=== PATIENT | male | born 1960 | race Caucasian/White ===

== ENCOUNTER → 2017-07-05 | Outpatient (CLI) | payer BC ==
--- NOTE | 2017-07-05 18:12 | CT ---
EXAMINATION TYPE: CT chest w con DATE OF EXAM: 07/05/2017 COMPARISON: NONE HISTORY: ABNORMAL FINDINGS ON CXR. CT DLP: 774 mGycm Automated exposure control for dose reduction was used. CONTRAST: CT scan of the chest is performed with IV Contrast, patient injected with 100 mL of Omnipaque 300. FINDINGS: The lungs are clear of consolidation. There is no evidence of a pulmonary mass. Heart size is normal. There is no mediastinal adenopathy. There are no hilar masses. Thoracic aorta appears normal. There is no evidence of aneurysm or dissection. There is no pericardial effusion. There is no pleural effus ion. The bony thorax appears intact. IMPRESSION: Negative CT scan of the chest.
== END | disposition home or self-care (01) ==
LOC: RADCTMAIN 17:29
PROVIDERS: ATTEND Family Medicine
DX: R91.8 Other nonspecific abnormal finding of lung field (principal)
CPT/HCPCS: 71260; Q9967

== ENCOUNTER → 2018-11-23 | Outpatient (CLI) | payer BC ==
--- NOTE | 2018-11-23 08:51 | US ---
EXAMINATION TYPE: US abdomen complete DATE OF EXAM: 11/23/2018 COMPARISON: NONE CLINICAL HISTORY: R10.10 Upper Abdominal Pain R12 Heartburn. Pt states upper ABD pain and heart burn EXAM MEASUREMENTS: Liver Length: 18.5 cm Gallbladder Wall: 0.4 cm CBD: 0.9 cm Spleen: 8.9 cm Right Kidney: 12.0 x 4.0 x 5.7 cm Left Kidney: 11.7 x 5.2 x 4.9 cm Pancreas: wnl, tail obscured by overlying bowel gas Liver: There is increased echogenicity of the hepatic parenchyma with diminished visualization of th e portal triads most commonly relating to hepatic steatosis and limiting evaluation for underlying he patic masses. Gallbladder: Gallstones at fundus, thickened wall and pericholecystic fluid Evidence for sonographic Encarnacion's sign: Yes CBD: wnl Spleen: wnl Right Kidney: wnl Left Kidney: wnl Upper IVC: wnl Abd Aorta: wnl The intrahepatic portion of the IVC and proximal abdominal aorta are within normal limits. Common kaylynn e duct is dilated. The visualized portions of the pancreas are homogenous. The spleen is unremarkabl e. Kidneys are symmetric and free of hydronephrosis. No renal lesions are seen. IMPRESSION: 1. Sonographic findings are most compatible with acute cholecystitis as there is gallbladder wall thi ckening, pericholecystic fluid, cholelithiasis, enlargement of the common bile duct, and positive son ographic Encarnacion sign. Surgical evaluation is recommended. 2. Sonographic findings most compatible with hepatic steatosis overall appearing mild in degree. Corey elate with liver function tests to exclude other hepatocellular disease. A Red level critical message alert has been initiated for Raysa Kingston III, MD via the [employer] Critical Results System on 11/23/2018 8:48 AM. This message alert has been sent to Raysa Kingston III, MD via the preferences provided by the clinician for the receipt of Radiology Critical Findings. [facility] [id number].
== END ==
LOC: RADUSWWP 08:16
PROVIDERS: ATTEND Family Medicine
DX: K82.8 Other specified diseases of gallbladder (principal); K83.8 Other specified diseases of biliary tract; K80.20 Calculus of gallbladder without cholecystitis without obstruction; R93.3 Abnormal findings on diagnostic imaging of other parts of digestive tract
CPT/HCPCS: 76700

== ENCOUNTER → 2018-11-30 | Day surgery (SDC) | payer BC ==
[2018-11-29 10:26] VITALS: BMI 33.5
[~2018-11-30] MED LIST: BUPIVACAINE-EPI 0.5%-1:200,000 10 ML VIAL SQ ONE; DEXAMETHASONE SOD PHOSPHATE 10 MG/ML 1 ML VIAL IV ONE; GLYCOPYRROLATE 0.2 MG/ML 2 ML VIAL ONE; HEPARIN SODIUM,PORCINE 5,000 UNIT/ML 1 ML VIAL SQ ONE; HYDROcodone/APAP 5-325MG 1 EACH TAB PO ONE; HYDROcodone/APAP 5-325MG 1 EACH TAB PO PRN; HYDROmorphone (PF) 1 MG/ML ONE; HYDROmorphone 0.5 MG/0.5 ML SYRINGE IVP PRN; LACTATED RINGERS 1,000 ML IV ONE; LACTATED RINGERS 1,000 ML IV SCH; LIDOCAINE 1% 20 ML VIAL (10MG/ML) FOR IV START INTRADERMA PRN; LIDOCAINE 1% INJ 10MG/ML (20 ML MDV) ONE; MIDAZOLAM 2 MG/2 ML VIAL IV PRN; MIDAZOLAM 2 MG/2 ML VIAL ONE; NALOXONE 0.4 MG/ML 1 ML VIAL IV PRN; NEOSTIGMINE 1 MG/ML 10 ML VIAL ONE; ONDANSETRON 4 MG/2 ML VIAL IVP ONE; PROPOFOL 10 MG/ML 20 ML VIAL IV ONE; ROCURONIUM BROMIDE 10 MG/ML 10 ML VIAL IV ONE; SUCCINYLCHOLINE CHLORIDE VIAL 200 MG/10 ML VIAL IV ONE; ceFAZolin IN SWFI 2 GM/20 ML SYRINGE IVP ONE; ePHEDrine SULFATE/0.9% NACL/PF 50 MG/5 ML SYRINGE IV ONE; fentaNYL (PF) 50 MCG/ML 2 ML AMP ONE
--- NOTE | 2018-11-30 13:47 | P.GSHP ---
History of Present Illness H&P Date: 11/30/18 Chief Complaint: Chronic cholecystitis Patient presents with a two-month history of abdominal bloating and vague upper abdominal pain with radiation to the back. No particular triggers for the pain. No vomiting. Mild nausea. Slight anorexia at times. Recent labs normal. Ultrasound shows a thickened gallbladder wall with stones. Patient here today for cholecystectomy. No bowel complaints. 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 Past Anesthesia/Blood Transfusion Reactions: No Reported Reaction Smoking Status: Never smoker - Past Family History Father Family Medical History: Cancer Medications and Allergies Home Medications Medication Instructions Recorded Confirmed Type Levofloxacin [Levaquin] 500 mg PO DAILY 11/29/18 11/29/18 History Olmesartan Medoxomil [Benicar] 40 mg PO DAILY 11/29/18 11/29/18 History Allergies Allergy/AdvReac Type Severity Reaction Status Date / Time amoxicillin [From Augmentin] Allergy Unknown Verified 11/29/18 10:18 clarithromycin [From Biaxin] Allergy Unknown Verified 11/29/18 10:18 clavulanic acid Allergy Unknown Verified 11/29/18 10:18 [From Augmentin] Surgical - Exam Physical exam: General: Well-developed, well-nourished HEENT: Normocephalic, sclerae nonicteric Abdomen: Nontender, nondistended Extremities: No edema Neuro: Alert and oriented Assessment and Plan (1) Chronic cholecystitis Narrative/Plan: Will proceed with laparoscopic cholecystectomy. Risks of bleeding, infection, bile leak, bile duct injury, retained common bile duct stone, trocar injury, conversion to an open procedure, hernia, anesthesia related complications were reviewed. The patient understands and wishes to proceed. Current Visit: Yes Status: Acute Code(s): K81.1 - CHRONIC CHOLECYSTITIS SNOMED Code(s): 80385455
--- NOTE | 2018-11-30 16:05 | P.OP ---
Date of Procedure: 11/30/18 Procedure(s) Performed: PREOPERATIVE DIAGNOSIS: Chronic cholecystitis, incarcerated umbilical hernia POSTOPERATIVE DIAGNOSIS: Same PROCEDURE: Laparoscopic cholecystectomy, repair incarcerated umbilical hernia SURGEON: Corina EBL: Sue see anesthesia record ANESTHESIA: Gen. COMPLICATIONS: None OPERATIVE PROCEDURE: The patient was brought and placed on the operating room table in the supine position. The patient was placed under general anesthesia at that time. The abdomen was prepped and draped in the usual sterile fashion. A horizontal supraumbilical incision was made. The patient's hernia sac was dissected circumferentially using ultra cautery. The hernia sac and a portion of the preperitoneal fat was excised. The defect in the fascia was approximately 1.5 cm it. This was partially closed using an 0 Vicryl suture. Through that defect the 12 mm trocar was advanced under direct visualization and insufflation took place up to 15 mmHg. 2 additional 5 mm trochars were placed in the right upper quadrant under direct visualization. A 12 mm trocar was advanced into the epigastric incision site. The gallbladder was chronically inflamed. The wall of the gallbladder was fairly thickened. The omentum was adherent to this. The gallbladder was retracted superiorly and laterally. The fatty adhesions to the gallbladder were lysed using blunt dissection and electrocautery. The peritoneum overlying the infundibulum was bluntly dissected. The patient's cystic duct was visualized. The junction between the cystic duct common and hepatic duct was identified. The cystic duct was then divided after placement of 2 12 mm clips on the patient's side and one on the specimen side. The cystic artery was identified and clipped as well. A small vessel was seen along the gallbladder fossa and clipped as well. The gallbladder was then removed from the liver bed using electrocautery. The gallbladder was then removed from the umbilical trocar site with an Endo Catch bag. The gallbladder fossa was irrigated with saline. There was no evidence of any bleeding or biliary drainage seen. The fascia at the 12 millimeter site was closed using a Ermias 0 Vicryl stitch. The trochars were then removed. The fascia at the umbilical hernia site was closed using [id number] 0 Ethibond sutures. The skin at all 4 sites was closed using 4-0 Monocryl sutures. Skin glue was utilized on the incision sites. At the end of this procedure the sponge and needle counts were correct. DISPOSITION: Stable to the recovery room
[2018-11-30 16:07] VITALS: TEMP 98
[2018-11-30 16:48] VITALS: RESP 16
[2018-11-30 17:21] VITALS: BP 169/87; PULSE 73
== END ==
LOC: OR 13:27
PROVIDERS: ATTEND Surgery
DX: K80.12 Calculus of gallbladder with acute and chronic cholecystitis without obstruction (principal); K42.0 Umbilical hernia with obstruction, without gangrene; I10 Essential (primary) hypertension; K21.9 Gastro-esophageal reflux disease without esophagitis; Z98.890 Other specified postprocedural states; Z79.2 Long term (current) use of antibiotics; Z79.899 Other long term (current) drug therapy; Z88.1 Allergy status to other antibiotic agents; Z88.0 Allergy status to penicillin
CPT/HCPCS: 88304; 88302; 47562; 49587; J2250; J0330; J1644; J1100; J2710; J2405; J2001; J3010; J1170 ×2; J2704; J0690

== ENCOUNTER → 2019-01-14 | Outpatient (CLI) | payer BC | END | disposition home or self-care (01) | LOC: LABWHC1 07:43 | PROVIDERS: ATTEND Family Medicine | DX: Z00.01 Encounter for general adult medical examination with abnormal findings (principal); Z13.818 Encounter for screening for other digestive system disorders; Z12.5 Encounter for screening for malignant neoplasm of prostate | CPT/HCPCS: 86803; 36415; G0103 ==

== ENCOUNTER → 2020-04-24 | Outpatient (CLI) | payer BC ==
--- NOTE | 2020-04-24 08:40 | XR ---
EXAMINATION TYPE: XR hand complete RT DATE OF EXAM: 04/24/2020 CLINICAL HISTORY: pain TECHNIQUE: Frontal, lateral and oblique images of the right hand are obtained. COMPARISON: None. FINDINGS: There is no acute fracture/dislocation evident. The joint spaces appear mildly narrowed se cond and third DIP joints. Possible fractured spur medial head middle phalanx third digit. The overly ing soft tissue appears unremarkable. IMPRESSION: Possible fractured spur medial head middle phalanx third digit.
== END | disposition home or self-care (01) ==
LOC: RADXRWHC 07:58
PROVIDERS: ATTEND Family Medicine
DX: M79.641 Pain in right hand (principal); M79.642 Pain in left hand

== ENCOUNTER → 2020-05-13 | Outpatient (CLI) | payer BC ==
[2020-05-13 09:33] LABS: Basophils # (A) 0.1 k/uL (0-0.2); Basophils % (A) 1 %; Eosinophils # (A) 0.4 k/uL (0-0.7); Eosinophils % (A) 4 %; HCT 46.5 % (39.0-53.0); HGB 14.8 gm/dL (13.0-17.5); Lymphocytes # (A) 2.6 k/uL (1.0-4.8); Lymphocytes % (A) 26 %; MCH 32.9 pg (25.0-35.0); MCHC 31.9 g/dL (31.0-37.0); MCV 103.3 fL (80.0-100.0); Macrocytosis Slight; Mean Platelet Volume 7.7; Monocytes # (A) 0.6 k/uL (0-1.0); Monocytes % (A) 6 %; Neutrophils % (A) 61 %; Platelet Count 297 k/uL (150-450); RDW 12.2 % (11.5-15.5); WBC 9.9 k/uL (3.8-10.6)
[2020-05-13 16:31] LABS: African American GFR (CKD) 106.5 (60.0-200.0); Albumin 4.2 g/dL (3.80-4.90); Albumin/Globulin Ratio 1.83 (1.60-3.17); Anion Gap 7.6 mmol/L (4.00-12.00); BUN/Creat Ratio 16.67 Ratio (12.00-20.00); Calcium 9.4 mg/dL (8.7-10.3); Carbon Dioxide 28.4 mmol/L (21.6-31.8); Chol/HDL Ratio 3.53; Globulin 2.3 g/dL (1.6-3.3); LDL Cholesterol,Calculated 83.2 mg/dL (0.0-131.0); Non-African American GFR(CKD) 91.9 (60.0-200.0); Potassium 4.3 mmol/L (3.5-5.5); Total Bilirubin 0.5 mg/dL (0.2-1.2); Total Protein 6.5 g/dL (6.2-8.2); VLDL Calculation 25.8 mg/dL (5.00-40.00)
[2020-05-13 16:38] LABS: Prostate Specific Antigen 1.2 ng/mL (0.0-4.5)
== END | disposition home or self-care (01) ==
LOC: LABWHC1 07:32
PROVIDERS: ATTEND Physician Assistant Medical
DX: Z00.01 Encounter for general adult medical examination with abnormal findings (principal); E55.9 Vitamin D deficiency, unspecified; I10 Essential (primary) hypertension
CPT/HCPCS: 36415; 80053; 80061; 82306; 84153; 85025

== ENCOUNTER → 2021-11-03 | Outpatient (CLI) | payer BC ==
[2021-11-03 14:24] LABS: Basophils # (A) 0.08 X 10*3/uL (0.00-0.10); Basophils % (A) 0.8 %; Eosinophils # (A) 0.27 X 10*3/uL (0.04-0.35); Eosinophils % (A) 2.6 %; HCT 45.5 % (39.6-50.0); HGB 14.8 g/dL (13.0-17.0); Lymphocytes % (A) 29.8 %; MCH 33.5 pg (27.0-32.0); MCHC 32.5 g/dL (32.0-37.0); MCV 102.9 fL (80.0-97.0); Mean Platelet Volume 9.6 fL (9.5-12.2); Monocytes # (A) 0.79 X 10*3/uL (0.20-1.00); Monocytes % (A) 7.6 %; Neutrophils # (A) 6.16 X 10*3/uL (1.80-7.70); Platelet Count 263 X 10*3/uL (140-440); RBC 4.42 X 10*6/uL (4.40-5.60); WBC 10.42 X 10*3/uL (4.50-10.00)
[2021-11-03 16:58] LABS: ALT 18 U/L (10-49); AST 30 U/L (14-35); Albumin 4.2 g/dL (3.8-4.9); Alkaline Phosphatase 70 U/L (41-126); BUN/Creat Ratio 17.33 Ratio (12.00-20.00); Blood Urea Nitrogen 15.6 mg/dL (9.0-27.0); Calcium 9.2 mg/dL (8.7-10.3); Carbon Dioxide 25.3 mmol/L (20.0-27.5); Chloride 104 mmol/L (96-109); Chol/HDL Ratio 3.99 Ratio; Glucose 108 mg/dL (70-110); LDL Cholesterol,Calculated 98.9 mg/dL (0.0-131.0); Non-African American GFR(CKD) 90.6 (60.0-200.0); Potassium 4.6 mmol/L (3.5-5.5); Sodium 141 mmol/L (135-145); Total Protein 7.2 g/dL (6.2-8.2); VLDL Calculation 19.46 mg/dL (5.00-40.00)
== END | disposition home or self-care (01) ==
LOC: LABWHC1 07:37
PROVIDERS: ATTEND Physician Assistant Medical
DX: Z00.00 Encounter for general adult medical examination without abnormal findings (principal); Z12.5 Encounter for screening for malignant neoplasm of prostate; Z13.228 Encounter for screening for other metabolic disorders; I10 Essential (primary) hypertension; E55.9 Vitamin D deficiency, unspecified
CPT/HCPCS: 80053; 80061; 84443; 85025; 82306; 36415; G0103

== ENCOUNTER → 2025-03-20 | Outpatient (CLI) | payer MEDICARE, BC ==
[2025-03-20 10:18] LABS: HCT 45.4 % (39.6-50.0); HGB 15.1 g/dL (13.0-17.0); MCH 34.1 pg (27.0-32.0); MCHC 33.3 g/dL (32.0-37.0); MCV 102.5 FL (80.0-97.0); Mean Platelet Volume 10.1 FL (9.5-12.2); NRBC Per 100 WBC 0 X 10*3/uL (0.00-0.01); Platelet Count 272 X 10*3/uL (140-440); RBC 4.43 X 10*6/uL (4.40-5.60); RDW 11.9 % (11.5-14.5); WBC 11.83 X 10*3/uL (4.50-10.00)
[2025-03-20 10:48] LABS: ALT 24 U/L (10-49); AST 36 U/L (14-35); Albumin 4.1 g/dL (3.8-4.9); Albumin/Globulin Ratio 1.41 Ratio (1.60-3.17); Alkaline Phosphatase 64 U/L (41-126); BUN/Creat Ratio 23.78 Ratio (12.00-20.00); Blood Urea Nitrogen 21.4 mg/dL (9.0-27.0); Calcium 9.2 mg/dL (8.7-10.3); Carbon Dioxide 24.6 mmol/L (21.6-31.8); Chloride 101 mmol/L (96-109); Globulin 2.9 g/dL (1.6-3.3); Glucose 151 mg/dL (70-110); Potassium 4.5 mmol/L (3.5-5.5); Sodium 136 mmol/L (135-145); Total Bilirubin 0.5 mg/dL (0.3-1.2)
[2025-03-20 10:49] LABS: Prostate Specific Antigen 1.32 ng/mL (0.000-4.500); T4, Free (Free Thyroxine) 0.94 ng/dL (0.80-1.80)
[2025-03-20 15:33] LABS: Appearance,Urine Clear (Clear); Bilirubin,Urine Negative (Negative); Blood,Urine Moderate (Negative); Color,Urine Yellow (Yellow); Ketones,Urine Trace (Negative); Nitrite,Urine Negative (Negative); PH, Urine 5.5; Specific Gravity,Urine 1.026 (1.001-1.030); Urobilinogen,Urine 0.2 E.U./DL
[2025-03-20 16:04] LABS: Bacteria,Urine None Seen (None Seen)
== END | disposition home or self-care (01) ==
LOC: LABWHC1 08:04
PROVIDERS: ATTEND Family Medicine
DX: I10 Essential (primary) hypertension (principal); E55.9 Vitamin D deficiency, unspecified; N40.0 Benign prostatic hyperplasia without lower urinary tract symptoms; R73.03 Prediabetes
CPT/HCPCS: 36415; 80053; 81001; 82306; 83036; 84153; 84439; 84443; 85027